=== PATIENT | male | born 1990 | race Caucasian/White ===

== ENCOUNTER 2023-03-13 10:41 | Outpatient (CLI) | payer BC, SELFPAY | END 2023-03-13 10:42 | disposition home or self-care (01) | PROVIDERS: PCP Family Medicine; Visit Provider Family Medicine | DX: Z00.00 Encounter for general adult medical examination without abnormal findings (principal); R68.82 Decreased libido; Z13.6 Encounter for screening for cardiovascular disorders | CPT/HCPCS: 80061; 84270; 84402; 84403 ==

== ENCOUNTER 2023-07-06 14:40 | Outpatient (CLI) | payer BC, SELFPAY | END 2023-07-06 14:41 | disposition home or self-care (01) | LOC: NFLDREF 07-07 08:13 | PROVIDERS: PCP Family Medicine; Referring Provider Family Medicine; Visit Provider Family Medicine | DX: R79.89 Other specified abnormal findings of blood chemistry (principal) | CPT/HCPCS: 80076; 84270; 84402; 84403 ==

== ENCOUNTER 2023-07-07 09:00 | Outpatient (CLI) | payer BC, SELFPAY | END 2023-07-07 09:01 | disposition home or self-care (01) | PROVIDERS: PCP Family Medicine; Visit Provider Family Medicine | DX: R79.89 Other specified abnormal findings of blood chemistry (principal); R68.82 Decreased libido | CPT/HCPCS: 80053; 80061 ==

== ENCOUNTER 2023-11-30 08:48 | Outpatient (CLI) | payer BC, SELFPAY | END 2023-11-30 08:49 | disposition home or self-care (01) | LOC: NFLDREF 12-06 12:05 | PROVIDERS: PCP Family Medicine; Referring Provider Family Medicine; Visit Provider Family Medicine | DX: R79.89 Other specified abnormal findings of blood chemistry (principal); E78.00 Pure hypercholesterolemia, unspecified | CPT/HCPCS: 80061; 84270; 84402; 84403 ==

== ENCOUNTER 2024-04-04 08:01 | Outpatient (CLI) | payer BC, SELFPAY | END 2024-04-04 08:02 | disposition home or self-care (01) | LOC: NFLDREF 04-07 07:41 | PROVIDERS: PCP Family Medicine; Referring Provider Family Medicine; Visit Provider Family Medicine | DX: R79.89 Other specified abnormal findings of blood chemistry (principal); E78.00 Pure hypercholesterolemia, unspecified; I10 Essential (primary) hypertension | CPT/HCPCS: 80076; 84270; 84402; 84403 ==

== ENCOUNTER 2024-06-21 09:16 | Outpatient (CLI) | payer BC, SELFPAY | END 2024-06-21 09:17 | disposition home or self-care (01) | LOC: NFLDREF 06-24 11:17 | PROVIDERS: PCP Family Medicine; Referring Provider Family Medicine; Visit Provider Family Medicine | DX: E78.00 Pure hypercholesterolemia, unspecified (principal); R79.89 Other specified abnormal findings of blood chemistry; I10 Essential (primary) hypertension; Z12.5 Encounter for screening for malignant neoplasm of prostate | CPT/HCPCS: 80053; 80061; 84270; 84402; 84403; G0103 ==

== ENCOUNTER 2025-07-30 08:29 | Outpatient (CLI) | payer BC, SELFPAY | END 2025-07-30 08:30 | disposition home or self-care (01) | LOC: NFLDREF 07-31 08:32 | PROVIDERS: PCP Family Medicine; Referring Provider Family Medicine; Visit Provider Family Medicine | DX: R79.89 Other specified abnormal findings of blood chemistry (principal); E78.00 Pure hypercholesterolemia, unspecified; Z13.1 Encounter for screening for diabetes mellitus; R53.83 Other fatigue | CPT/HCPCS: 80053; 80061; 84270; 84402; 84403 ==

== ENCOUNTER 2025-08-13 10:28 | Outpatient (CLI) | payer BC, SELFPAY ==
--- NOTE | 2025-08-13 10:45 | CRLHL7_ITS ---
For Patients: As a result of the Century Cures Act, medical imaging exams and procedure reports are released immediately into your electronic medical record. You may view this report before your referring provider. If you have questions, please contact your health care provider. INDICATION: Abnormal blood chemistry COMPARISON: 04/07/2023 TECHNIQUE: Real time dawson scale imaging and color Doppler analysis was performed of the right upper quadrant. FINDINGS: Liver echotexture is diffusely echogenic and coarsened. Hyperechoic lesion is present within the right hepatic lobe which measures 2.2 x 2.2 x 1.6 cm. The liver measures 17.0 cm. Additional hyperechoic lesion within the right hepatic lobe measures 1.3 cm with smaller adjacent areas of hyperechoic tissue. There is a normal appearance of the hepatic IVC and visualized proximal abdominal aorta. There is no evidence of ascites. The gallbladder is of normal size and there is an echogenic focus adherent to the gallbladder wall which measures 3 millimeters. The gallbladder wall measures 1 mm in thickness. The common bile duct is of normal size and measures 3 mm in diameter at the level of the sandra hepatis. The visualized pancreas appears somewhat echogenic. There is no evidence of a stone or hydronephrosis within the right kidney. The right kidney measures 13.1 cm in length. IMPRESSION: Mild hepatomegaly with moderate-severe hepatic steatosis. Incidental intrahepatic hemangiomas. 3 millimeter gallbladder polyp. Dictated by Alex Rueda MD @ 08/13/2025 2:59:29 PM (Electronically Signed)
== END 2025-08-13 10:29 | disposition home or self-care (01) ==
LOC: US 10:29
PROVIDERS: PCP Family Medicine; Visit Provider Family Medicine
DX: R79.89 Other specified abnormal findings of blood chemistry (principal); K76.0 Fatty (change of) liver, not elsewhere classified; K82.4 Cholesterolosis of gallbladder
CPT/HCPCS: 76705